=== PATIENT | male | born 1950 | race Caucasian/White ===

== ENCOUNTER 2019-06-06 22:11 | Emergency (ER) | payer OTHER ==
[2019-06-06] MEDS ORDERED: NA CHLORIDE 0.9% 1,000 ML ONE (22:43)
[2019-06-06 23:07] LABS: Absolute Lymphocytes (CBC) 1.8 K/uL (0.7-4.9); Hematocrit 43.8 % (39.6-49.0); Lymphocytes % 19.5 % (15.3-44.8); MPV 10.5 fL (7.6-11.3); RBC Red Blood Cell Count 4.85 M/uL (4.33-5.43)
[2019-06-06 23:18] LABS: Albumin 3.2 g/dL (3.4-5.0); Bilirubin Total 0.4 mg/dL (0.2-1.0); Potassium 3.7 mmol/L (3.5-5.1); Protein, Total 7.1 g/dL (6.4-8.2)
--- NOTE | 2019-06-07 00:49 | ER ---
Nurse's Notes [facility] Name: Rod Benitez Age: 68 yrs Sex: Male : 1950 Arrival Date: 06/06/2019 Time: 22:14 Bed 13 Private MD: Diagnosis: Cough;Pleurisy Presentation: 06/06 22:19 Presenting complaint: Patient states: Got sick on a trip. Patient reports cough and ao chills. Patient denies fever but has been lethargic and weak. Transition of care: patient was not received from another setting of care. Onset of symptoms is unknown. Risk Assessment: Do you want to hurt yourself or someone else? Patient reports no desire to harm self or others. Initial Sepsis Screen: Does the patient meet any 2 criteria? No. Patient's initial sepsis screen is negative. Does the patient have a suspected source of infection? No. Patient's initial sepsis screen is negative. Care prior to arrival: None. 22:19 Method Of Arrival: Ambulatory ao 22:19 Acuity: NAUN 3 ao Historical: - Allergies: 22:26 PROPOFOL; ao - Home Meds: 22:26 Crestor 10 mg Oral tab 1 tab once daily [Active]; latanoprost 0.005 % ophthalmic drop 1 ao drop once daily [Active]; levothyroxine 100 mcg oral tab 1 tab once daily [Active]; liothyronine 5 mcg Oral tab 1 tab once daily [Active]; - PMHx: 22:26 Glaucoma; High Cholesterol; Orthostatic hypotension; THYROID CANCER; Atrial Fib; ao - PSHx: 22:26 prostate surgery; catarats Sx; ao - Immunization history:: Adult Immunizations up to date. - Social history:: Smoking status: Patient/guardian denies using tobacco. - Ebola Screening: : No symptoms or risks identified at this time Patient reports travel to an Ebola-affected area in the 21 days before illness onset. Patient reports to have traveled to [place]. Screenin:30 Abuse screen: Denies threats or abuse. Nutritional screening: No deficits noted. jb4 Tuberculosis screening: No symptoms or risk factors identified. Fall Risk None identified. Assessment: 22:30 General: Appears in no apparent distress. comfortable, Behavior is calm, cooperative, jb4 appropriate for age. Pain: Complains of pain in mid-sternal area Pain does not radiate. Pain currently is 0 out of 10 on a pain scale. at worst was 5 out of 10 on a pain scale. Quality of pain is described as feeling like a pulled muscle. Neuro: Level of Consciousness is awake, alert, obeys commands, Oriented to person, place, time, situation. Cardiovascular: Patient's skin is warm and dry. Respiratory: Airway is patent Respiratory effort is even, unlabored, Respiratory pattern is regular, symmetrical, Breath sounds are clear in left upper lobe, left lower lobe, left posterior upper lobe, right posterior upper lobe, left posterior lower lobe and right posterior middle lobe Breath sounds with rhonchi in right upper lobe, right middle lobe, right lower lobe and right posterior lower lobe. GI: No deficits noted. No signs and/or symptoms were reported involving the gastrointestinal system. : No deficits noted. No signs and/or symptoms were reported regarding the genitourinary system. EENT: No deficits noted. No signs and/or symptoms were reported regarding the EENT system. Derm: Skin is intact, Skin is pink, warm \T\ dry. Musculoskeletal: Circulation, motion, and sensation intact. Range of motion: intact in all extremities. 23:30 Reassessment: Patient appears in no apparent distress at this time. Patient and/or jb4 family updated on plan of care and expected duration. Pain level reassessed. Patient is alert, oriented x 3, equal unlabored respirations, skin warm/dry/pink. PT finished IV fluids, X-ray notified. 06/07 00:45 Reassessment: Patient appears in no apparent distress at this time. Patient and/or jb4 family updated on plan of care and expected duration. Pain level reassessed. Patient is alert, oriented x 3, equal unlabored respirations, skin warm/dry/pink. Provider at the bedside explaining test results. 01:01 Reassessment: PT verbalized understanding of d/c and follow up instructions. Ambulated jb4 out of ED with a steady gait. Vital Signs: 06/06 22:26 BP 136 / 76; Pulse 64; Resp 18; Temp 98.2(O); Pulse Ox 97% on R/A; Weight 90.72 kg (R); ao Height 6 ft. 0 in. (182.88 cm); Pain 5/10; 23:30 BP 132 / 71; Pulse 90; Resp 16; Pulse Ox 94% on R/A; jb4 06/07 00:45 BP 127 / 79; Pulse 59; Resp 16; Pulse Ox 97% on R/A; jb4 06/06 22:26 Body Mass Index 27.12 (90.72 kg, 182.88 cm) ao ED Course: 06/06 22:14 Patient arrived in ED. cf2 22:17 Trent Gregory MD is Attending Physician. ps1 22:22 Triage completed. ao 22:23 Mukul Falk, DEEDEE is Primary Nurse. jb4 22:27 Arm band placed on right wrist. Patient placed in an exam room, on a stretcher, on ao cardiac specialist, on pulse oximetry, Patient notified of wait time. 22:30 Patient has correct armband on for positive identification. Placed in gown. Bed in low jb4 position. Call light in reach. Side rails up X 1. cosmetologist on. Pulse ox on. NIBP on. 22:35 Initial lab(s) drawn, by me, sent to lab. Inserted saline lock: 20 gauge in right jb4 forearm, using aseptic technique. Blood collected. 22:49 Radiology exam delayed due to Pt getting IV. Will call when ready. az 06/07 00:27 Chest Pa And Lat (2 Views) XRAY In Process Unspecified. EDMS 01:02 No provider procedures requiring assistance completed. IV discontinued, intact, jb4 bleeding controlled, No redness/swelling at site. Pressure dressing applied. Administered Medications: 06/06 22:45 Drug: NS 0.9% 1000 ml Route: IV; Rate: 1 bolus; Site: right forearm; jb4 23:31 Follow up: Response: No adverse reaction; IV Status: Completed infusion; IV Intake: jb4 1000ml 06/07 01:01 Drug: Decadron 10 mg Route: PO; jb4 01:01 Follow up: Response: Medication administered at discharge. jb4 Intake: 06/06 23:31 IV: 1000ml; Total: 1000ml. jb4 Outcome: 06/07 00:48 Discharge ordered by . ps1 01:02 Discharged to home ambulatory. jb4 01:02 Condition: stable 01:02 Discharge instructions given to patient, Instructed on discharge instructions, follow up and referral plans. Demonstrated understanding of instructions, follow-up care. 01:03 Patient left the ED. jb4 Signatures: Dispatcher [employer] Julian Lopez RN Mukul Sykes RN RN jb4 Trent Gregory MD MD [facility] [[email or web address]] Mendy Miller [facility]
--- NOTE | 2019-06-07 00:49 | EDPHYS ---
Physician Documentation [facility] Name: Rod Benitez Age: 68 yrs Sex: Male : 1950 Arrival Date: 06/06/2019 Time: 22:14 Bed 13 Private MD: ED Physician Trent Gregory HPI: 06/06 22:46 This 68 yrs old Male presents to ER via Ambulatory with complaints of Cough. ps1 22:46 patient has a > 2 week history of a cough that started while on vacation to [place]. ps1 Patient states that his symptoms started with conjunctivitis and GI symptoms. He then started having a cough and sought care in an emergency department out of town. Negative CXR at the time. Since then he since has been self medicating at home. He took a couple days of keflex 500 bid and stopped yesterday. States that his cough worsened since then. No fever on examination today. Hx of afib post ablation. Not on anticoags. On thyrioid medication. . Historical: - Allergies: 22:26 PROPOFOL; ao - Home Meds: 22:26 Crestor 10 mg Oral tab 1 tab once daily [Active]; latanoprost 0.005 % ophthalmic drop 1 ao drop once daily [Active]; levothyroxine 100 mcg oral tab 1 tab once daily [Active]; liothyronine 5 mcg Oral tab 1 tab once daily [Active]; - PMHx: 22:26 Glaucoma; High Cholesterol; Orthostatic hypotension; THYROID CANCER; Atrial Fib; ao - PSHx: 22:26 prostate surgery; catarats Sx; ao - Immunization history:: Adult Immunizations up to date. - Social history:: Smoking status: Patient/guardian denies using tobacco. - Ebola Screening: : No symptoms or risks identified at this time Patient reports travel to an Ebola-affected area in the 21 days before illness onset. Patient reports to have traveled to [place]. ROS: 22:46 Constitutional: Negative for fever, chills, and weight loss, Eyes: Negative for injury, ps1 pain, redness, and discharge, Cardiovascular: Negative for chest pain, palpitations, and edema, Abdomen/GI: Negative for abdominal pain, nausea, vomiting, diarrhea, and constipation, MS/Extremity: Negative for injury and deformity, Skin: Negative for injury, rash, and discoloration, Neuro: Negative for headache, weakness, numbness, tingling, and seizure. 22:46 Respiratory: Positive for cough, pleurisy, of the xyphoid area and right breast. Exam: 22:46 Constitutional: This is a well developed, well nourished patient who is awake, alert, ps1 and in no acute distress. Head/Face: Normocephalic, atraumatic. Eyes: Pupils equal round and reactive to light, extra-ocular motions intact. Lids and lashes normal. Conjunctiva and sclera are non-icteric and not injected. Chest/axilla: Normal chest wall appearance and motion. Nontender with no deformity. No lesions are appreciated. Cardiovascular: Regular rate and rhythm. No gallops, murmurs, or rubs. Normal PMI, no JVD. No pulse deficits. Respiratory: Lungs have equal breath sounds bilaterally, clear to auscultation and percussion. No rales, rhonchi or wheezes noted. No increased work of breathing, no retractions or nasal flaring. Abdomen/GI: Soft, non-tender, with normal bowel sounds. No distension or tympany. No guarding or rebound. No evidence of tenderness throughout. MS/ Extremity: Pulses equal, no cyanosis. Neurovascular intact. Full, normal range of motion. Neuro: Awake and alert, GCS 15, oriented to person, place, time, and situation. Cranial nerves II-XII grossly intact. Sensory grossly intact. Psych: Awake, alert, with orientation to person, place and time. Behavior, mood, and affect are within normal limits. Vital Signs: 22:26 BP 136 / 76; Pulse 64; Resp 18; Temp 98.2(O); Pulse Ox 97% on R/A; Weight 90.72 kg (R); ao Height 6 ft. 0 in. (182.88 cm); Pain 5/10; 23:30 BP 132 / 71; Pulse 90; Resp 16; Pulse Ox 94% on R/A; jb4 06/07 00:45 BP 127 / 79; Pulse 59; Resp 16; Pulse Ox 97% on R/A; jb4 06/06 22:26 Body Mass Index 27.12 (90.72 kg, 182.88 cm) ao MDM: 06/06 22:45 Patient medically screened. ps1 06/07 00:44 Data reviewed: vital signs, nurses notes, lab test result(s), radiologic studies, and ps1 as a result, I will discharge patient. Counseling: I had a detailed discussion with the patient and/or guardian regarding: the historical points, exam findings, and any diagnostic results supporting the discharge/admit diagnosis, lab results, radiology results, the need for outpatient follow up, to return to the emergency department if symptoms worsen or persist or if there are any questions or concerns that arise at home. ED course: likely post viral. Decadron in ED. Encourage hydration and OTC meds. Return precautions given. Stable for discharge. . 06/06 22:29 Order name: CBC with Diff; Complete Time: 23:34 ps1 06/06 22:29 Order name: CMP; Complete Time: 23:34 ps1 06/06 22:29 Order name: Chest Pa And Lat (2 Views) XRAY ps1 06/06 22:29 Order name: Procalcitonin; Complete Time: 00:14 ps1 06/06 22:29 Order name: Lactate; Complete Time: 23:34 ps1 Administered Medications: 06/06 22:45 Drug: NS 0.9% 1000 ml Route: IV; Rate: 1 bolus; Site: right forearm; [facility] 23:31 Follow up: Response: No adverse reaction; IV Status: Completed infusion; IV Intake: jb4 1000ml 06/07 01:01 Drug: Decadron 10 mg Route: PO; 4 01:01 Follow up: Response: Medication administered at discharge. jb4 Disposition: 06/07/19 00:48 Discharged to Home. Impression: Cough, Pleurisy. - Condition is Stable. - Discharge Instructions: Upper Respiratory Infection, Adult. - Medication Reconciliation Form, Thank You Letter, Antibiotic Education, Prescription Opioid Use form. - Follow up: Private Physician; When: 48 Hours; Reason: Further diagnostic work-up, Recheck today's complaints, Continuance of care, Re-evaluation by your physician. Follow up: Emergency Department; When: As needed; Reason: Fever > 102 F, Trouble breathing, Worsening of condition. - Problem is new. - Symptoms have improved. Signatures: Dispatcher [employer] EDJulian Clayton RN RN ao Bryson, James, RN RN jb4 Trent Gregory MD MD ps1 Corrections: (The following items were deleted from the chart) : 00:48 06/07/2019 00:48 Discharged to Home. Impression: Cough; Pleurisy. Condition is jb4 Stable. Forms are Medication Reconciliation Form, Thank You Letter, Antibiotic Education, Prescription Opioid Use. Follow up: Private Physician; When: 48 Hours; Reason: Further diagnostic work-up, Recheck today's complaints, Continuance of care, Re-evaluation by your physician. Follow up: Emergency Department; When: As needed; Reason: Fever > 102 F, Trouble breathing, Worsening of condition. Problem is new. Symptoms have improved. ps1
[2019-06-07] MEDS ORDERED: dexAMETHasone 4 MG TAB ONE (00:52)
[2019-06-07 01:09] VITALS: TEMP 98.2
[2019-06-07 01:11] VITALS: BP 127/79; O2SAT 97
--- NOTE | 2019-06-07 08:25 | RAD REPORT ---
EXAM DESCRIPTION: RAD - Chest Pa And Lat (2 Views) - 06/07/2019 12:27 am CLINICAL HISTORY: COUGH Chest pain. COMPARISON: CHEST PA AND LAT 2 VIEW dated 06/25/2011; CHEST PA AND LAT 2 VIEW dated 09/13/2004 FINDINGS: Emphysematous changes are present throughout the lungs. Mild left base increased lung ze ings are seen suggesting mild developing infiltrate/ pneumonia. The heart is normal in size. No displ aced fractures.
== END 2019-06-07 01:03 | disposition home or self-care (01) ==
LOC: ER 22:11
DX: R09.1 Pleurisy (principal); I48.91 Unspecified atrial fibrillation; E78.00 Pure hypercholesterolemia, unspecified; I95.1 Orthostatic hypotension; Z88.4 Allergy status to anesthetic agent; Z85.850 Personal history of malignant neoplasm of thyroid
CPT/HCPCS: 85025; 36415; 83605; 80053; 84145; 71046; 96360; 99284; J7030; J8540

== ENCOUNTER 2019-11-24 07:42 | Emergency (ER) | payer OTHER ==
--- NOTE | 2019-11-24 09:25 | EDPHYS ---
Physician Documentation [facility] Name: Rod Benitez Age: 68 yrs Sex: Male : 1950 Arrival Date: 11/24/2019 Time: 07:43 Bed 13 Private MD: ED Physician Trace Mcintosh HPI: 11/23 07:53 This 68 yrs old Male presents to ER via Ambulatory with complaints of Fever. kdr Historical: - Allergies: 07:55 PROPOFOL; jl7 - Home Meds: 07:55 Crestor 10 mg Oral tab 1 tab once daily [Active]; latanoprost 0.005 % ophthalmic drop 1 jl7 drop once daily [Active]; levothyroxine 100 mcg tab 1 tab once daily [Active]; liothyronine 5 mcg Oral tab 1 tab once daily [Active]; - PMHx: 07:55 Atrial Fib; Glaucoma; High Cholesterol; Orthostatic hypotension; THYROID CANCER; jl7 - PSHx: 07:55 Thyroidectomy; Ablation; jl7 - Immunization history:: Adult Immunizations up to date. - Social history:: Smoking status: Patient denies any tobacco usage or history of. ROS: 07:53 Constitutional: Negative for weight loss Has had fever and chills Eyes: Negative for kdr injury, pain, redness, and discharge, ENT: Negative for injury, pain, and discharge, Neck: Negative for injury, pain, and swelling, Cardiovascular: Negative for chest pain, palpitations, and edema, Respiratory: Negative for shortness of breath, cough, wheezing, and pleuritic chest pain, Back: Negative for injury and pain, : Negative for injury, bleeding, discharge, and swelling, MS/Extremity: Negative for injury and deformity, Skin: Negative for injury, rash, and discoloration, Neuro: Negative for headache, weakness, numbness, tingling, and seizure activity. Psych: Negative for depression, anxiety, suicide ideation, homicidal ideation, and hallucinations, Allergy/Immunology: Negative for hives, rash, and allergies, Endocrine: Negative for neck swelling, polydipsia, polyuria, polyphagia, and marked weight changes, Hematologic/Lymphatic: Negative for swollen nodes, abnormal bleeding, and unusual bruising. 07:53 Abdomen/GI: Positive for diarrhea, Had one loose stool yesterday, Negative for abdominal pain, nausea and vomiting, constipation, hematemesis, black/tarry stool, rectal pain, rectal bleeding. Exam: 07:53 Constitutional: This is a well developed, well nourished patient who is awake, alert, kdr and in no acute distress. Head/Face: Normocephalic, atraumatic. Eyes: Pupils equal round and reactive to light, extra-ocular motions intact. Lids and lashes normal. Conjunctiva and sclera are non-icteric and not injected. Cornea within normal limits. Periorbital areas with no swelling, redness, or edema. ENT: Nares patent. No nasal discharge, no septal abnormalities noted. Tympanic membranes are normal and external auditory canals are clear. Oropharynx with no redness, swelling, or masses, exudates, or evidence of obstruction, uvula midline. Mucous membranes moist. Neck: Trachea midline, no thyromegaly or masses palpated, and no cervical lymphadenopathy. Supple, full range of motion without nuchal rigidity, or vertebral point tenderness. No Meningismus. Chest/axilla: Normal chest wall appearance and motion. Nontender with no deformity. No lesions are appreciated. Cardiovascular: Regular rate and rhythm with a normal S1 and S2. No gallops, murmurs, or rubs. Normal PMI, no JVD. No pulse deficits. Respiratory: Lungs have equal breath sounds bilaterally, clear to auscultation and percussion. No rales, rhonchi or wheezes noted. No increased work of breathing, no retractions or nasal flaring. Abdomen/GI: Soft, non-tender, with normal bowel sounds. No distension or tympany. No guarding or rebound. No evidence of tenderness throughout. Back: No spinal tenderness. No costovertebral tenderness. Full range of motion. MS/ Extremity: Pulses equal, no cyanosis. Neurovascular intact. Full, normal range of motion. Neuro: Awake and alert, GCS 15, oriented to person, place, time, and situation. Cranial nerves II-XII grossly intact. Motor strength 5/5 in all extremities. Sensory grossly intact. Cerebellar exam normal. Normal gait. Psych: Awake, alert, with orientation to person, place and time. Behavior, mood, and affect are within normal limits. 07:53 Skin: Appearance: normal except for affected area, Moisture: diaphoretic. Vital Signs: 07:45 BP 132 / 81; Pulse 71; Resp 16 S; Temp 99(O); Pulse Ox 96% on R/A; jl7 09:30 BP 131 / 73; Pulse 56; Resp 16 S; Pulse Ox 97% on R/A; jl7 MDM: 07:53 Data reviewed: vital signs, nurses notes. [facility] 09:24 Patient medically screened. [facility] 11/23 07:52 Order name: Flu; Complete Time: 09:18 kdr 11/23 07:52 Order name: Strep; Complete Time: : kdr 11/23 07:52 Order name: Misc. Lab Test: COVID-19 [facility] 11/23 08:57 Order name: Throat Culture EDMS Administered Medications: No medications were administered Disposition: 11/24/19 09:24 Discharged to Home. Impression: Fever, unspecified, Viral infection, unspecified. - Condition is Stable. - Discharge Instructions: Viral Respiratory Infection, [id number], Infection Control in the Home, Fever, Adult, [id number]. - Medication Reconciliation Form, Thank You Letter form. - Follow up: Private Physician; When: 2 - 3 days; Reason: If symptoms return, Further diagnostic work-up, Recheck today's complaints, Continuance of care, Re-evaluation by your physician. - Problem is new. - Symptoms have improved. - Notes: Recommedn self quarantine for yourself and any recent close contacts for 14 days. Signatures: Dispatcher [employer] EDMS Trace Mcintosh MD MD kdr Leal, Jahala RN RN jl7 Corrections: (The following items were deleted from the chart) 10:15 09:24 11/24/2019 09:24 Discharged to Home. Impression: Fever, unspecified; Viral jl7 infection, unspecified. Condition is Stable. Forms are Medication Reconciliation Form, Thank You Letter, Antibiotic Education, Prescription Opioid Use. Follow up: Private Physician; When: 2 - 3 days; Reason: If symptoms return, Further diagnostic work-up, Recheck today's complaints, Continuance of care, Re-evaluation by your physician. Problem is new. Symptoms have improved. kdr
--- NOTE | 2019-11-24 09:25 | ER ---
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 Reports getting the shingles vaccine yesterday. Coronavirus screen: Patient reports a subjective fever or greater than 100.4F, or cough, or shortness of breath, or difficulty breathing. Surgical mask placed on patient. Patient moved to private room, placed in contact and droplet isolation with eye protection until further assessment. Patient denies travel on a cruise ship or to a country the [facility] currently lists as an affected area. Patient denies contact with known and/or suspected case of COVID-19. Ebola Screen: No symptoms or risks identified at this time. Initial Sepsis Screen: Does the patient meet any 2 criteria? No. Patient's initial sepsis screen is negative. Does the patient have a suspected source of infection? No. Patient's initial sepsis screen is negative. Risk Assessment: Do you want to hurt yourself or someone else? Patient reports no desire to harm self or others. Onset of symptoms was November 24, 2019. 07:45 Method Of Arrival: Ambulatory jl7 07:45 Acuity: NAUN 3 jl7 Triage Assessment: 07:45 General: Appears in no apparent distress. uncomfortable, Behavior is calm, cooperative, jl7 appropriate for age. Pain: Denies pain. EENT: Throat is clear. Neuro: Level of Consciousness is awake, alert, obeys commands, Oriented to person, place, time, situation. Cardiovascular: Denies chest pain, palpitations, Patient's skin is warm and dry. Respiratory: Airway is patent Respiratory effort is even, unlabored, Respiratory pattern is regular, symmetrical. GI: No signs and/or symptoms were reported involving the gastrointestinal system. : No signs and/or symptoms were reported regarding the genitourinary system. Derm: Skin is dry, Skin is flushed, Skin temperature is warm. Historical: - Allergies: 07:55 PROPOFOL; jl7 - Home Meds: 07:55 Crestor 10 mg Oral tab 1 tab once daily [Active]; latanoprost 0.005 % ophthalmic drop 1 jl7 drop once daily [Active]; levothyroxine 100 mcg tab 1 tab once daily [Active]; liothyronine 5 mcg Oral tab 1 tab once daily [Active]; - PMHx: 07:55 Atrial Fib; Glaucoma; High Cholesterol; Orthostatic hypotension; THYROID CANCER; jl7 - PSHx: 07:55 Thyroidectomy; Ablation; jl7 - Immunization history:: Adult Immunizations up to date. - Social history:: Smoking status: Patient denies any tobacco usage or history of. Screenin:18 Abuse screen: Denies threats or abuse. Denies injuries from another. Nutritional jl7 screening: No deficits noted. Tuberculosis screening: No symptoms or risk factors identified. Fall Risk None identified. Assessment: 08:18 General: See triage assessment. Respiratory: Denies shortness of breath. jl7 09:00 Reassessment: Patient appears in no apparent distress at this time. No changes from jl7 previously documented assessment. Patient and/or family updated on plan of care and expected duration. Pain level reassessed. Patient is alert, oriented x 3, equal unlabored respirations, skin warm/dry/pink. Vital Signs: 07:45 BP 132 / 81; Pulse 71; Resp 16 S; Temp 99(O); Pulse Ox 96% on R/A; jl7 09:30 BP 131 / 73; Pulse 56; Resp 16 S; Pulse Ox 97% on R/A; jl7 ED Course: 07:43 Patient arrived in ED. jl7 07:51 Trace Mcintosh MD is Attending Physician. kdr 07:52 Triage completed. jl7 08:16 Julio Anderson RN is Primary Nurse. jl7 08:16 Arm band placed on right wrist. jl7 08:18 Patient has correct armband on for positive identification. Placed in gown. Bed in low jl7 position. Call light in reach. Side rails up X 1. Pulse ox on. NIBP on. Warm blanket given. Pillow given. 08:18 Flu and/or RSV swab sent to lab. Strep swab sent to lab. COVID-19 swab test sent to lab.jl7 10:14 No provider procedures requiring assistance completed. Patient did not have IV access jl7 during this emergency room visit. 10:57 Health Dept notified that COVID test was sent to the lab/ [facility] # [place] [id number]... eb lab notified. Administered Medications: No medications were administered Outcome: 09:24 Discharge ordered by . kdr 10:14 Discharged to home ambulatory. jl7 10:14 Condition: stable 10:14 Discharge instructions given to patient, Instructed on discharge instructions, follow up and referral plans. Quarantine instructions Demonstrated understanding of instructions, follow-up care, Quarantine instructions 10:15 Patient left the ED. jl7 Signatures: Trace Mcintosh MD MD kdr Leal, Jahala, RN RN jl7 Tamiko Moralez Corrections: (The following items were deleted from the chart) 11:00 10:57 Health Dept notified COVID test sent to lab/ [facility] # [place] [id number] eb eb
[2019-11-24 10:25] VITALS: TEMP 99
[2019-11-24 10:26] VITALS: BP 131/73; O2SAT 97
== END 2019-11-24 10:15 | disposition home or self-care (01) ==
LOC: ER 07:42
DX: R50.9 Fever, unspecified (principal); B34.9 Viral infection, unspecified; Z20.828 Contact with and (suspected) exposure to other viral communicable diseases
CPT/HCPCS: 87070; 87081; 87804 ×2; 99283; U0001